=== PATIENT | female | born 1965 | race Two or more races ===

== ENCOUNTER 2023-08-31 00:25 | Emergency (ER) | payer OTHER ==
[~2023-08-31] VITALS: Ht 172.7 cm; Wt 63.5 kg
[2023-08-31] MEDS ORDERED: CLONAZEPAM1 M1 (00:38)
[2023-08-31] MEDS ORDERED: NEURONTIN300 MG (00:38)
[2023-08-31] MEDS ORDERED: AVAPRO150 MG (00:38)
[2023-08-31] MEDS ORDERED: TOPROL XL100 M1 (00:39)
[2023-08-31] MEDS ORDERED: GLIMEPIRIDE2 MG (00:39)
[2023-08-31] MEDS ORDERED: METFORMIN HCL1000 M2 (00:39)
[2023-08-31] MEDS ORDERED: MELOXICAM15 MG PO (03:51)
== END 2023-08-31 04:00 ==
LOC: ER 00:25
DX: M62.838 Other muscle spasm (principal)
CPT/HCPCS: 72040; 96372; 99283; J1885; J3301